=== PATIENT | female | born 1965 | race Two or more races ===

== ENCOUNTER 2019-01-26 16:21 | Emergency (ER) | payer OTHER ==
[~2019-01-26] VITALS: Ht 160 cm; Wt 74.8 kg
[2019-01-26 16:31] VITALS: BP 123/77
[2019-01-26] MEDS ORDERED: NKM (16:31)
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
[2019-01-26] MEDS ORDERED: Ketorolac 60mg Inj IM ONE (16:45)
[2019-01-26] MEDS ORDERED: IBUPROFEN600 MG ORAL (17:49)
[2019-01-26] MEDS ORDERED: CYCLOBENZAPRINE10 MG ORAL (17:49)
[2019-01-26 17:53] VITALS: BP 123/77
== END 2019-01-26 19:15 | disposition home or self-care (01) ==
LOC: EMR 16:42
DX: S16.1XXA Strain of muscle, fascia and tendon at neck level, initial encounter (principal); V43.92XA Unspecified car occupant injured in collision with other type car in traffic accident, initial encounter; Y92.411 Interstate highway as the place of occurrence of the external cause
CPT/HCPCS: 70450; 72125; 96372; 99283